=== PATIENT | female | born 1970 | race Caucasian/White ===

== ENCOUNTER 2017-06-13 18:18 | Outpatient (CLI) | payer MEDICARE, MEDICAID ==
--- NOTE | 2017-06-13 19:01 | XRAY Preliminary Report ---
Exam: XR Knee 3 View LT IMPRESSION: No evidence of fracture or dislocation. [facility] SITE ID: [id number]
--- NOTE | 2017-06-13 19:03 | XRAY Report ---
EXAM: LEFT KNEE RADIOGRAPHY EXAM DATE: 06/13/2017 06:38 PM. CLINICAL HISTORY: Left knee pain. COMPARISON: None. TECHNIQUE: 3 views. FINDINGS: Bones: No fracture or focal bony lesion. Joints: No evidence of dislocation. There may be a small suprapatellar joint effusion. Soft Tissues: No unexpected soft tissue findings. IMPRESSION: No evidence of fracture or dislocation. [facility] Referring Provider Line: [phone] SITE ID: [id number]
== END 2017-06-13 18:19 | disposition home or self-care (01) ==
LOC: DI 18:18
PROVIDERS: ATTEND Specialist
DX: M25.562 Pain in left knee (principal)